=== PATIENT | male | born 1985 | race Caucasian/White ===

== ENCOUNTER 2017-05-30 00:36 | Emergency (ER) | payer BC ==
--- NOTE | 2017-05-30 02:02 | PDOC ---
History of Present Illness - General History Source: Patient Exam Limitations: No Limitations - History of Present Illness Initial Comments: 05/30/17 02:32 Patient is a 32 year old male with no significant past medical history who presents to the ED with complaints of throat pain that began 1 week ago. Patient reports experiencing throat blockage that he states began suddenly 1 week ago with no signs of subsiding. He reports experiencing SOB secondary to throat blockage. Patient states he has experienced intermittent dry cough, but states he can feel something move when he coughs but states it is stuck in the back of his throat. He reports taking Dayquil and mucinex for throat blockage with no relief. Denies fever, chills. Denies nausea, vomiting. Denies diarrhea, constipation, hematuria, dysuria. Denies contact with sick individuals, out of state travel. Denies any other symptoms. Allergies: None Social history: No smoking. No alcohol. No illicit drugs. Surgical history: None PMD: Not on staff. <Zack Rousseau - Last Filed: 05/30/17 02:32> <Azar Falcon - Last Filed: 05/30/17 02:40> - General Chief Complaint: Sore Throat Stated Complaint: SORE THROAT Time Seen by Provider: 05/30/17 02:02 Past History <Zack Rousseau - Last Filed: 05/30/17 02:32> <Azar Falcon - Last Filed: 05/30/17 02:40> - Past Medical History Allergies/Adverse Reactions: Allergies Allergy/AdvReac Type Severity Reaction Status Date / Time No Known Allergies Allergy Verified 05/30/17 02:03 Home Medications: Ambulatory Orders Levofloxacin [Levaquin] 750 mg PO DAILY #10 tab 05/30/17 Review of Systems - Review of Systems Able to Perform ROS?: Yes Comments:: 05/30/17 02:32 GENERAL/CONSTITUTIONAL: No fever or chills. No weakness. HEAD, EYES, EARS, NOSE AND THROAT: +Sore throat. No change in vision. No ear pain or discharge. CARDIOVASCULAR: No chest pain or shortness of breath. RESPIRATORY: No cough, wheezing, or hemoptysis. GASTROINTESTINAL: No nausea, vomiting, diarrhea or constipation. GENITOURINARY: No dysuria, frequency, or change in urination. MUSCULOSKELETAL: No joint or muscle swelling or pain. No neck or back pain. SKIN: No rash NEUROLOGIC: No headache, vertigo, loss of consciousness, or change in strength/ sensation. ENDOCRINE: No increased thirst. No abnormal weight change. HEMATOLOGIC/LYMPHATIC: No anemia, easy bleeding, or history of blood clots. ALLERGIC/IMMUNOLOGIC: No hives or skin allergy. All Other Systems: Reviewed and Negative <Zack Rousseau - Last Filed: 05/30/17 02:32> *Physical Exam - Vital Signs Last Vital Signs Temp Pulse Resp BP Pulse Ox 98.8 F 89 18 119/75 98 05/30/17 02:01 05/30/17 02:01 05/30/17 02:01 05/30/17 02:01 05/30/17 02:01 - Physical Exam Comments: 05/30/17 02:32 GENERAL: Awake, alert, and fully oriented, in no acute distress HEAD: No signs of trauma EYES: PERRLA, EOMI, sclera anicteric, conjunctiva clear ENT: Auricles normal inspection, hearing grossly normal, nares patent, oropharynx clear without exudates. Moist mucosa NECK: +Swollen glands. Normal ROM, supple, no lymphadenopathy, JVD, or masses LUNGS: Breath sounds equal, clear to auscultation bilaterally. No wheezes, and no crackles HEART: Regular rate and rhythm, normal S1 and S2, no murmurs, rubs or gallops ABDOMEN: No spleen tenderness. Soft, nontender, normoactive bowel sounds. No guarding, no rebound. No masses EXTREMITIES: Normal range of motion, no edema. No clubbing or cyanosis. No cords, erythema, or tenderness NEUROLOGICAL: Cranial nerves II through XII grossly intact. Normal speech, normal gait SKIN: Warm, Dry, normal turgor, no rashes or lesions noted. <Zack Rousseau - Last Filed: 05/30/17 02:32> *DC/Admit/Observation/Transfer - Attestations Scribe Attestion: 05/30/17 02:33 Documentation prepared by Zack Rousseau, acting as medical science liaison for Azar Falcon MD/DO. <Zack Rousseau - Last Filed: 05/30/17 02:32> - Attestations Physician Attestion: 05/30/17 02:02 IDr. Azar, attest that this document has been prepared under my direction and personally reviewed by me in its entirety. I further attest, that it accurately reflects all work, treatment, procedures and medical decision -making performed by me. <Azar Falcon - Last Filed: 05/30/17 02:40> Diagnosis at time of Disposition: Bronchitis - Discharge Dispostion Disposition: HOME Condition at time of disposition: Improved - Prescriptions Prescriptions: Levofloxacin [Levaquin] 750 mg PO DAILY #10 tab - Referrals Referrals: STAFF,NOT ON [Primary Care Provider] - - Patient Instructions Printed Discharge Instructions: DI for Acute Bronchitis Additional Instructions: Return to us if worse or any new symptoms occur. Follow up with your doctor next week - Post Discharge Activity
[2017-05-30 02:03] VITALS: BP 119/75; PULSE 89; TEMP 98.8; BMI 30.4
[2017-05-30] MEDS ORDERED: LEVOFLOXACIN 250 MG TABLET (FP) PO ONE (02:29)
[2017-05-30] MEDS ORDERED: LEVOFLOXACIN 250 MG TABLET (FP) ONE (02:46)
[2017-05-30] MEDS ORDERED: LEVOFLOXACIN 500 MG TABLET (FP) ONE (02:46)
== END 2017-05-30 03:02 | disposition home or self-care (01) ==
LOC: JER 00:36 → SUPCPDRO 00:36 → JER 03:02
DX: J40 Bronchitis, not specified as acute or chronic (principal)
CPT/HCPCS: 99281-25